=== PATIENT | male | born 1965 | race Caucasian/White ===

== ENCOUNTER 2017-11-05 16:35 | Emergency (ER) | payer MEDICARE, OTHER ==
[2017-11-05] MEDS ORDERED: Ondansetron 4 MG/2 ML SDV ONE (16:40)
[2017-11-05] MEDS ORDERED: Sodium Chloride 0.9% 10 ML Syringe FLUSH PRN (16:42)
[2017-11-05] MEDS ORDERED: Morphine 4 MG/ML Syringe IVPUSH ONE (16:42)
[2017-11-05] MEDS ORDERED: Sodium Chloride 0.9% 2.5 ML Syringe FLUSH PRN (16:42)
[2017-11-05] MEDS ORDERED: Ondansetron 4 MG/2 ML SDV IVPUSH ONE (16:42)
[2017-11-05] MEDS ORDERED: Morphine 2 MG/ML Syringe IVPUSH ONE ×4 (16:48→19:35)
[2017-11-05] MEDS ORDERED: Morphine 2 MG/ML Syringe ONE (16:48)
--- NOTE | 2017-11-05 16:54 | EDM.PDOC ---
<Lillian Morales - Last Filed: 11/05/17 18:53> ED HPI GENERAL MEDICAL PROBLEM - General Chief Complaint: Gastrointestinal Problem Stated Complaint: ABDOMINAL PAIN Time Seen by Provider: 11/05/17 16:38 Source of Information: Reports: Patient History Limitations: Reports: No Limitations - History of Present Illness INITIAL COMMENTS - FREE TEXT/NARRATIVE: History of present illness: []Patient is a 51-year-old male status post kidney transplant one year ago at [facility] by Dr. Simmons, who developed abdominal pain around 10 this morning. He went to work this morning which involves driving to different job sites and no strenuous activity. The pain worsened throughout the day and finally became intolerable when he started vomiting. Patient denies any fevers, chills, diarrhea or passing any flatus today. Patient has had peritoneal dialysis in the past and when the catheter was removed a hernia formed secondarily. Patient has not had any complications with this hernia in the past. Review of systems: As per history of present illness and below otherwise all systems reviewed and negative. Past medical history: As per history of present illness and as reviewed below otherwise noncontributory. Surgical history: As per history of present illness and as reviewed below otherwise noncontributory. Social history: No reported history of drug or alcohol abuse. Family history: As per history of present illness and as reviewed below otherwise noncontributory. Physical exam: General: Well developed, well nourished in NAD HEENT: Atraumatic, normocephalic, pupils reactive, negative for conjunctival pallor or scleral icterus, mucous membranes moist, throat clear, neck supple, nontender, trachea midline. Lungs: Clear to auscultation, breath sounds equal bilaterally, chest nontender. Heart: S1S2, regular, negative for clicks, rubs, or JVD. Abdomen: Soft, nondistended, nontender. Negative for masses or hepatosplenomegaly. Negative for costovertebral tenderness. Pelvis: Stable nontender. Genitourinary: Deferred. Rectal: Deferred. Extremities: Atraumatic, negative for cords or calf pain. Neurovascular unremarkable. Neuro: Awake, alert, oriented. Cranial nerves II through XII unremarkable. Cerebellum unremarkable. Motor and sensory unremarkable throughout. Exam nonfocal. Diagnostics: [] Therapeutics: [] Impression: [] Plan: [] Definitive disposition and diagnosis as appropriate pending reevaluation and review of above. Abdominal Pain Score (Numeric/FACES): 8 - Related Data Allergies Allergy/AdvReac Type Severity Reaction Status Date / Time cimetidine [From Tagamet] Allergy Chest Verified 11/05/17 16:44 Presssure Home Meds: Home Meds Acetaminophen [Tylenol Extra Strength] 500 mg PO Q4HR PRN 11/05/17 [History] Aspirin [Adult Aspirin] 81 mg PO DAILY 11/05/17 [History] Carvedilol [Coreg] 25 mg PO BID 11/05/17 [History] Ketorolac Tromethamine 1 drop OP DAILY 11/05/17 [History] Losartan Potassium 25 mg PO DAILY 11/05/17 [History] Magnesium Oxide 400 mg PO BID 11/05/17 [History] Mycophenolate Sodium [Mycophenolic Acid] 360 mg PO BID 11/05/17 [History] Ofloxacin [Ocuflox 0.3% Ophth Soln] 0 ml TOP ONETIME 11/05/17 [History] Prednisolone Acetate/Pf [Prednisolone Acet 1% Eye Drop] 1 drop OP DAILY [History] Rosuvastatin [Crestor] 2.5 mg PO DAILY 11/05/17 [History] Tacrolimus 1 mg PO BID 11/05/17 [History] amLODIPine [Norvasc] 5 mg PO DAILY 11/05/17 [History] predniSONE [Prednisone] 5 mg PO DAILY 11/05/17 [History] ED ROS GENERAL - Review of Systems Review Of Systems: ROS reveals no pertinent complaints other than HPI. ED EXAM, GI/ABD - Physical Exam Exam: See Below (See history of present illness) Course - Vital Signs Last Recorded V/S: Last Vital Signs Temp 97.8 F 11/05/17 16:46 Pulse 102 H 11/05/17 18:34 Resp 16 11/05/17 18:34 BP 154/81 H 11/05/17 18:34 Pulse Ox 95 11/05/17 18:34 - Orders/Labs/Meds Orders: Active Orders 24 hr Category Date Time Status NPO [Nothing Per Oral Diet] [DIET] Diet 11/06/17 Breakfast Active Abdomen 1V Flat [CR] Stat Exams 11/05/17 19:16 Taken Abdomen Pelvis wo Cont [CT] Stat Exams 11/05/17 17:05 Taken UA W/MICROSCOPIC [URIN] Stat Lab 11/05/17 18:35 Ordered Morphine Med 11/05/17 19:35 Once 2 mg IVPUSH ONETIME ONE Morphine Med 11/05/17 19:35 Once 2 mg IVPUSH ONETIME ONE Sodium Chloride 0.9% [Normal Saline] 250 ml Med 11/05/17 17:45 Active IV ASDIRECTED Sodium Chloride 0.9% [Saline Flush] Med 11/05/17 16:42 Active 10 ml FLUSH ASDIRECTED PRN Sodium Chloride 0.9% [Saline Flush] Med 11/05/17 16:42 Active 2.5 ml FLUSH ASDIRECTED PRN NG [Nasogastric Orogastric Tube Insertion] [OM.PC] Stat Oth 11/05/17 18:37 Ordered Saline Lock Insert [OM.PC] Stat Oth 11/05/17 16:42 Ordered Medication Orders Sodium Chloride (Normal Saline) 250 mls @ 250 mls/hr IV ASDIRECTED KEVIN Morphine Sulfate (Morphine) 2 mg IVPUSH ONETIME ONE Stop: 11/05/17 19:36 Morphine Sulfate (Morphine) 2 mg IVPUSH ONETIME ONE Stop: 11/05/17 19:36 Sodium Chloride (Saline Flush) 10 ml FLUSH ASDIRECTED PRN PRN Reason: Keep Vein Open Sodium Chloride (Saline Flush) 2.5 ml FLUSH ASDIRECTED PRN PRN Reason: Keep Vein Open Labs: Laboratory Tests 11/05/17 11/05/17 11/05/17 Range/Units 16:45 16:45 16:45 WBC 11.93 H (4.0-11.0) K/uL RBC 5.39 (4.50-5.90) M/uL Hgb 15.1 (13.0-17.0) g/dL Hct 44.7 (38.0-50.0) % MCV 82.9 (80.0-98.0) fL MCH 28.0 (27.0-32.0) pg MCHC 33.8 (31.0-37.0) g/dL RDW Std Deviation 41.7 (28.0-62.0) fl RDW Coeff of Tabatha 14 (11.0-15.0) % Plt Count 256 (150-400) K/uL MPV 10.20 (7.40-12.00) fL Neut % (Auto) 82.9 H (48.0-80.0) % Lymph % (Auto) 10.7 L (16.0-40.0) % [place] % (Auto) 5.9 (0.0-15.0) % Eos % (Auto) 0.3 (0.0-7.0) % Baso % (Auto) 0.2 (0.0-1.5) % Neut # (Auto) 9.9 H (1.4-5.7) K/uL Lymph # (Auto) 1.3 (0.6-2.4) K/uL [place] # (Auto) 0.7 (0.0-0.8) K/uL Eos # (Auto) 0.0 (0.0-0.7) K/uL Baso # (Auto) 0.0 (0.0-0.1) K/uL Nucleated RBC % 0.0 /100WBC Nucleated RBCs # 0 K/uL Lactate 1.3 (0.20-2.00) mmol/L Sodium 135 L (136-148) mmol/L Potassium 4.6 (3.5-5.1) mmol/L Chloride 102 (98-107) mmol/L Carbon Dioxide 24.1 (21.0-32.0) mmol/L BUN 32 H (7.0-18.0) mg/dL Creatinine 1.5 H (0.8-1.3) mg/dL Est Cr Clr Drug Dosing 61.36 mL/min Estimated GFR (MDRD) 49.1 ml/min Glucose 286 H (74-106) mg/dL Calcium 10.3 H (8.5-10.1) mg/dL Total Bilirubin 0.8 (0.2-1.0) mg/dL AST 14 L (15-37) IU/L ALT 30 (14-63) IU/L Alkaline Phosphatase 100 (46-116) U/L Total Protein 8.0 (6.4-8.2) g/dL Albumin 4.4 (3.4-5.0) g/dL Globulin 3.6 H (2.0-3.5) g/dL Albumin/Globulin Ratio 1.2 L (1.3-2.8) Lipase (73-393) U/L Urine Color Urine Appearance Urine pH (5.0-8.0) Ur Specific Robards (1.001-1.035) Urine Protein (NEGATIVE) mg/dL Urine Glucose (UA) (NEGATIVE) mg/dL Urine Ketones (NEGATIVE) mg/dL Urine Occult Blood (NEGATIVE) Urine Nitrite (NEGATIVE) Urine Bilirubin (NEGATIVE) Urine Urobilinogen (<2.0) EU/dL Ur Leukocyte Esterase (NEGATIVE) Urine RBC (0-2/HPF) Urine WBC (0-5/HPF) Ur Epithelial Cells (NONE-FEW) Urine Bacteria (NEGATIVE) 11/05/17 11/05/17 Range/Units 16:45 18:35 WBC (4.0-11.0) K/uL RBC (4.50-5.90) M/uL Hgb (13.0-17.0) g/dL Hct (38.0-50.0) % MCV (80.0-98.0) fL MCH (27.0-32.0) pg MCHC (31.0-37.0) g/dL RDW Std Deviation (28.0-62.0) fl RDW Coeff of Tabatha (11.0-15.0) % Plt Count (150-400) K/uL MPV (7.40-12.00) fL Neut % (Auto) (48.0-80.0) % Lymph % (Auto) (16.0-40.0) % [place] % (Auto) (0.0-15.0) % Eos % (Auto) (0.0-7.0) % Baso % (Auto) (0.0-1.5) % Neut # (Auto) (1.4-5.7) K/uL Lymph # (Auto) (0.6-2.4) K/uL [place] # (Auto) (0.0-0.8) K/uL Eos # (Auto) (0.0-0.7) K/uL Baso # (Auto) (0.0-0.1) K/uL Nucleated RBC % /100WBC Nucleated RBCs # K/uL Lactate (0.20-2.00) mmol/L Sodium (136-148) mmol/L Potassium (3.5-5.1) mmol/L Chloride (98-107) mmol/L Carbon Dioxide (21.0-32.0) mmol/L BUN (7.0-18.0) mg/dL Creatinine (0.8-1.3) mg/dL Est Cr Clr Drug Dosing mL/min Estimated GFR (MDRD) ml/min Glucose (74-106) mg/dL Calcium (8.5-10.1) mg/dL Total Bilirubin (0.2-1.0) mg/dL AST (15-37) IU/L ALT (14-63) IU/L Alkaline Phosphatase (46-116) U/L Total Protein (6.4-8.2) g/dL Albumin (3.4-5.0) g/dL Globulin (2.0-3.5) g/dL Albumin/Globulin Ratio (1.3-2.8) Lipase 121 (73-393) U/L Urine Color YELLOW Urine Appearance CLEAR Urine pH 6.0 (5.0-8.0) Ur Specific Robards 1.020 (1.001-1.035) Urine Protein NEGATIVE (NEGATIVE) mg/dL Urine Glucose (UA) >=1000 (NEGATIVE) mg/dL Urine Ketones 15 H (NEGATIVE) mg/dL Urine Occult Blood NEGATIVE (NEGATIVE) Urine Nitrite NEGATIVE (NEGATIVE) Urine Bilirubin NEGATIVE (NEGATIVE) Urine Urobilinogen 0.2 (<2.0) EU/dL Ur Leukocyte Esterase NEGATIVE (NEGATIVE) Urine RBC 1-2 (0-2/HPF) Urine WBC 0-2 (0-5/HPF) Ur Epithelial Cells RARE (NONE-FEW) Urine Bacteria FEW (NEGATIVE) Meds: Medications Generic Name Dose Route Start Last Admin Trade Name Freq PRN Reason Stop Dose Admin Sodium Chloride 250 mls @ 250 mls/hr 11/05/17 17:45 Normal Saline IV ASDIRECTED KEVIN Morphine Sulfate 2 mg 11/05/17 19:35 Morphine IVPUSH 11/05/17 19:36 ONETIME ONE Morphine Sulfate 2 mg 11/05/17 19:35 Morphine IVPUSH 11/05/17 19:36 ONETIME ONE Sodium Chloride 10 ml 11/05/17 16:42 Saline Flush FLUSH ASDIRECTED PRN Keep Vein Open Sodium Chloride 2.5 ml 11/05/17 16:42 Saline Flush FLUSH ASDIRECTED PRN Keep Vein Open Discontinued Medications Generic Name Dose Route Start Last Admin Trade Name Freq PRN Reason Stop Dose Admin Sodium Chloride 1,000 mls @ 999 mls/hr 11/05/17 16:42 11/05/17 17:37 Normal Saline IV 11/05/17 17:42 999 mls/hr .Bolus ONE Administration Morphine Sulfate 4 mg 11/05/17 16:42 11/05/17 16:49 Morphine IVPUSH 11/05/17 16:43 Not Given ONETIME ONE Morphine Sulfate 4 mg 11/05/17 16:48 11/05/17 17:07 Morphine IVPUSH 11/05/17 16:49 4 mg ONETIME ONE Administration Morphine Sulfate Confirm 11/05/17 16:48 11/05/17 17:09 Morphine Administered 11/05/17 16:49 Not Given Dose 4 mg .ROUTE .STK-MED ONE Morphine Sulfate 4 mg 11/05/17 19:25 Morphine IVPUSH 11/05/17 19:26 ONETIME ONE Ondansetron HCl Confirm 11/05/17 16:40 11/05/17 16:49 Zofran Administered 11/05/17 16:41 Not Given Dose 4 mg .ROUTE .STK-MED ONE Ondansetron HCl 4 mg 11/05/17 16:42 11/05/17 16:59 Zofran IVPUSH 11/05/17 16:43 4 mg ONETIME ONE Administration Departure - Departure Time of Disposition: 18:53 Disposition: DC/Tfer to Other 70 Clinical Impression: Small bowel obstruction, History of renal transplant Abdominal pain Qualifiers: Abdominal location: periumbilical Qualified Code(s): R10.33 - Periumbilical pain - Discharge Information Referrals: PCP,None [Primary Care Provider] - Forms: ED Department Discharge - My Orders Last 24 Hours: My Active Orders 11/05/17 19:16 Abdomen 1V Flat [CR] Stat 11/05/17 19:35 Morphine 2 mg IVPUSH ONETIME ONE Morphine 2 mg IVPUSH ONETIME ONE - Assessment/Plan Last 24 Hours: My Active Orders 11/05/17 19:16 Abdomen 1V Flat [CR] Stat 11/05/17 19:35 Morphine 2 mg IVPUSH ONETIME ONE Morphine 2 mg IVPUSH ONETIME ONE <Damon Solis - Last Filed: 11/05/17 19:38> ED HPI GENERAL MEDICAL PROBLEM - General Source of Information: Reports: Patient History Limitations: Reports: No Limitations - History of Present Illness INITIAL COMMENTS - FREE TEXT/NARRATIVE: HISTORY AND PHYSICAL: History of present illness: Dr. Solis taken over patient care at 1900. I have discussed the case with Dr. Morales and reviewed patient's history as well as physical exam and laboratory findings. I personally examined the patient and agree with all the above. Patient is a 51-year-old male presenting to emergency department with abdominal pain starting at 10 a.m. with past medical history of renal transplant one year ago and persisted periumbilical hernia from previous peritoneal dialysis. Initial CBC showed mild leukocytosis of 11.9 K, CMP revealed a BUN of 32 and a creatinine of 1.5, lactate was within normal limits at 1.3, urinalysis unremarkable. CT the abdomen showed a mechanical small bowel obstruction present from a left paramedial hernia with small bowel loops measuring up to 2.2 cm in diameter. Patient was comfortable after being given morphine IV as well as Zofran, and NG tube was placed without complication. Review of systems: As per history of present illness and below otherwise all systems reviewed and negative. Past medical history: As per history of present illness and as reviewed below otherwise noncontributory. Surgical history: As per history of present illness and as reviewed below otherwise noncontributory. Social history: No reported history of drug or alcohol abuse. Family history: As per history of present illness and as reviewed below otherwise noncontributory. Diagnostics: Dr. Morales CBC, CMP, Lactate, UA/UC Dr. Solis KUB for NG tube placement confirmation Therapeutics: Dr. Morales Morphine 4 mg IV, 4 mg Zofran IV, 1 L normal saline x1, NG tube, NPO Dr. Solis Morphine 4 mg IV x1, Impression: Mechanical Small bowel obstruction History of renal transplant Abdominal pain Plan: Dr. Morales discussed this case with [place] general surgeon as well as hospitalist who have accepted the patient for transfer. We did send the patient' s medical records as well as CT findings and medication list. Dr. Jorge, hospitalist, accepted the patient for transfer after I further discussed the case with her. Patient was transferred by air ambulance to [place]. Definitive disposition and diagnosis as appropriate pending reevaluation and review of above. ED ROS GENERAL - Review of Systems Review Of Systems: ROS reveals no pertinent complaints other than HPI. ED EXAM, GI/ABD - Physical Exam Exam: See Below Departure - Departure Condition: Fair - Discharge Information *PRESCRIPTION DRUG MONITORING PROGRAM REVIEWED*: Not Applicable *COPY OF PRESCRIPTION DRUG MONITORING REPORT IN PATIENT CANELO: Not Applicable - My Orders Last 24 Hours: My Active Orders 11/05/17 19:16 Abdomen 1V Flat [CR] Stat 11/05/17 19:35 Morphine 2 mg IVPUSH ONETIME ONE Morphine 2 mg IVPUSH ONETIME ONE - Assessment/Plan Last 24 Hours: My Active Orders 11/05/17 19:16 Abdomen 1V Flat [CR] Stat 11/05/17 19:35 Morphine 2 mg IVPUSH ONETIME ONE Morphine 2 mg IVPUSH ONETIME ONE
[2017-11-05] MEDS: Sodium Chloride 0.9% 1,000 ML IV ONE ×2 (17:10→17:37)
[2017-11-05] MEDS ORDERED: Sodium Chloride 0.9% 250 ML IV SCH (17:45)
[2017-11-05] MEDS ORDERED: Sodium Chloride 0.9% 1,000 ML IV SCH (21:15)
--- NOTE | 2017-11-07 11:57 | CT ---
EXAM DATE: 11/05/17 PATIENT'S AGE: 51 Patient: EMELINA MONTENEGRO Facility: [place], [place] Site . Site : 1965 Study: CT Abdomen/Pelvis [id number] 5:34:39 PM Ordering Physician: Andrew Snyder Final Report: INDICATION: Abdominal pain TECHNIQUE: CT Abdomen and pelvis without i.v. contrast. Coronal and sagittal reformats were obtained. CONTRAST: None COMPARISON: None FINDINGS: Lower chest: Unremarkable. Liver: Unremarkable. Spleen: Unremarkable. Pancreas: Unremarkable. Gallbladder: A small amount of layering milk of calcium or sludge is seen within the gallbladder. Kidney: Moderate atrophy of bilateral [place] kidneys are noted. There is a right iliac fossa transplant kidney seen. Adrenal: Unremarkable. Bowel: Mechanical small bowel obstruction is present from a left paraumbilical hernia with small bowel loops measuring up to 3.2 cm in diameter. Mild diverticulosis of the descending and sigmoid colon seen. The appendix is normal in appearance and size. Vascular: Unremarkable. Lymph: Unremarkable. Peritoneum: Unremarkable. No pneumoperitoneum is seen. No significant ascites is noted. Pelvis: Unremarkable. Soft tissue: Unremarkable. Bone: Unremarkable for age. IMPRESSION: 1. Mechanical small bowel obstruction is present from a left paraumbilical hernia with small bowel loops measuring up to 3.2 cm in diameter. Dictated by Mahesh Jackson MD @ 11/05/2017 6:04:40 PM Please note that all CT scans at this facility use dose modulation, iterative reconstruction, and/or weight-based dosing when appropriate to reduce radiation dose to as low as reasonably achievable. Dictated by: aMhesh Jackson MD @ 11/05/2017 18:04:46 (Electronic Signature) Report Signed by Proxy. [facility]ITALDudley
--- NOTE | 2017-11-07 13:08 | CR ---
EXAM DATE: 11/05/17 PATIENT'S AGE: 51 Patient: EMELINA MONTENEGRO Facility: [place], [place] Site . Site : 1965 Study: XRay Abdomen [id number]/21/[id number] 7:31:08 PM Ordering Physician: Will Jose Final Report: HISTORY: NG tube placement. TECHNIQUE: Supine frontal view of the abdomen. COMPARISON: None. FINDINGS: NG tube tip is in the distal stomach. Minimal bowel gas. Degenerative changes of the spine. IMPRESSION: Tip of NG tube in the distal stomach. Dictated by Sung Rodriguez MD @ Nov 05 2017 7:45PM (Electronic Signature) Report Signed by Proxy. MENDEZ
== END 2017-11-05 22:35 | disposition other institution (70) ==
LOC: MW.ED 16:35
DX: K56.609 Unspecified intestinal obstruction, unspecified as to partial versus complete obstruction (principal); Z94.0 Kidney transplant status; Z88.8 Allergy status to other drugs, medicaments and biological substances; Z79.82 Long term (current) use of aspirin; Z79.899 Other long term (current) drug therapy
CPT/HCPCS: 36415; 74018; 74176; 80053; 81001; 83605; 83690; 85025; 96361; 96374; 96375; 96376; 99285; J2270; J2405; J7040